=== PATIENT | female | born 1970 | race African-American/Black ===

== ENCOUNTER 2019-02-03 09:46 | Emergency (ER) | payer SELFPAY ==
[2019-02-03] MEDS ORDERED: FAMOTIDINE 20 MG TABLET PO ONE (10:05)
[2019-02-03] MEDS ORDERED: PREDNISONE 20 MG TABLET PO ONE (10:05)
[2019-02-03] MEDS ORDERED: DIPHENHYDRAMINE HCL 50 MG CAPSULE PO ONE (10:05)
--- NOTE | 2019-02-03 10:06 | ER Document Report ---
ED Medical Screen (RME) - General Chief Complaint: Allergic Reaction Stated Complaint: POSSIBLE ALLERGIC REACTION Time Seen by Provider: 02/03/19 10:01 Mode of Arrival: Ambulatory Information source: Patient Notes: Patient presents to the ER today for facial swelling, bilateral eyelid swelling and drainage x4 days after taking an [id number] women's generic vitamin that she thinks she is having an allergic reaction to. She states her eyelids are the worst and that she has had drainage that she has had to wipe from her eyelids. She has been taking Benadryl without relief. She denies any difficulty breathing or feeling of swelling to her lips or airway. TRAVEL OUTSIDE OF THE [place] IN LAST 30 DAYS: No - Related Data Allergies/Adverse Reactions: No Known Allergies Allergy (Verified 02/03/19 09:48) Past Medical History - General Information source: Patient Review of Systems - Review of Systems EENT: See HPI Physical Exam - Vital signs Vitals: Temp Pulse Resp BP Pulse Ox 98.7 F 87 19 148/74 H 96 02/03/19 09:53 02/03/19 09:53 02/03/19 09:53 02/03/19 09:53 02/03/19 09:53 - Notes Notes: PHYSICAL EXAMINATION: GENERAL: Well-appearing and in no acute distress. HEAD: Atraumatic, normocephalic. EYES: Bilateral upper eyelids edematous with drainage bilaterally, pupils equal round and reactive to light, extraocular movements intact, sclera anicteric ENT: nares patent, oropharynx clear without exudates. airway patent Course - Vital Signs Vital signs: Temp Pulse Resp BP Pulse Ox 98.7 F 87 19 148/74 H 96 02/03/19 09:53 02/03/19 09:53 02/03/19 09:53 02/03/19 09:53 02/03/19 09:53
--- NOTE | 2019-02-03 10:26 | ER Document Report ---
ED General - General Chief Complaint: Allergic Reaction Stated Complaint: POSSIBLE ALLERGIC REACTION Time Seen by Provider: 02/03/19 10:01 Primary Care Provider: AMANDO GUIDRY MD [COMMUNITY BASED STAFF] - Follow up as needed RUPESH HODGE MD [ACTIVE STAFF] - Follow up tomorrow Mode of Arrival: Ambulatory TRAVEL OUTSIDE OF THE [place] IN LAST 30 DAYS: No - HPI Notes: 48-year-old female presents the ED for bilateral eye swelling that occurred approximately 7 days ago, patient states she was taking a [id number] vitamin from the [employer] store, states she noticed itching around her eyes, states she did take 25 mg of Benadryl which did help with the itching. Denies any trauma to the eye. Denies fevers, chills, chest pain,palpitations, shor tness of breath, dyspnea, nausea, vomiting, diarrhea, abdominal pain, hematuria,blurred vision, double vision, loss of vision, speech changes, LH, dizziness, syncope, headaches, wheezing, ST, URI, neck pain, weakness, bowel or bladder dysfunction, saddle anesthesia, numbness or tingling in bilateral upper or lower extremities equally, muscle paralysis, weakness in bilateral upper or lower extremities equally or rash. - Related Data Allergies/Adverse Reactions: No Known Allergies Allergy (Verified 02/03/19 09:48) Past Medical History - General Information source: Patient - Social History Smoking Status: Current Every Day Smoker Chew tobacco use (# tins/day): No Frequency of alcohol use: Occasional Drug Abuse: None Family History: Reviewed & Not Pertinent Patient has suicidal ideation: No Patient has homicidal ideation: No Renal/ Medical History: Denies: Hx Peritoneal Dialysis Past Surgical History: Reports: Hx Section - X2 Review of Systems - Review of Systems Constitutional: No symptoms reported EENT: See HPI Cardiovascular: No symptoms reported Respiratory: No symptoms reported Gastrointestinal: No symptoms reported Genitourinary: No symptoms reported Female Genitourinary: No symptoms reported Musculoskeletal: No symptoms reported Skin: No symptoms reported Hematologic/Lymphatic: No symptoms reported Neurological/Psychological: No symptoms reported Physical Exam - Vital signs Vitals: Temp Pulse Resp BP Pulse Ox 98.7 F 87 19 148/74 H 96 02/03/19 09:53 02/03/19 09:53 02/03/19 09:53 02/03/19 09:53 02/03/19 09:53 - Notes Notes: PHYSICAL EXAMINATION: GENERAL: Well-appearing, well-nourished and in no acute distress. HEAD: Atraumatic, normocephalic. Bilateral Periorbital swelling with noted papular rash non-erythematous, no erythema induration or warmth to touch. EYES: Pupils equal round and reactive to light, extraocular movements intact, conjunctiva with erythema. ENT: Nares patent, oropharynx clear without exudates. Moist mucous membranes. NECK: Normal range of motion, supple without lymphadenopathy LUNGS: Breath sounds clear to auscultation bilaterally and equal. No wheezes rales or rhonchi. HEART: Regular rate and rhythm without murmurs ABDOMEN: Soft, nontender, nondistended abdomen. No guarding, no rebound. No masses appreciated. Female : deferred Musculoskeletal: Normal range of motion, no pitting or edema. No cyanosis. NEUROLOGICAL: Cranial nerves grossly intact. Normal speech, normal gait. Normal sensory, motor exams PSYCH: Normal mood, normal affect. SKIN: Warm, Dry, normal turgor, no rashes or lesions noted. Course - Re-evaluation Re-evalutation: 02/03/19 12:14 Afebrile vitals stable no distress. Nursing notes reviewed. CBC and CMP unrem arkable, CRP slightly elevated. Throughout the duration of her stay, patient states she is feeling better after receiving 60 mg of prednisone, 20 mg of famotidine and 50 mg of benadryl on re evaluation. Only decreased on periorbital area bilaterally.Patient presents with symptoms consistent with an allergic reaction without anaphylaxis. Only cutaneous involvement with eve orbital area with dermatitis Vitals otherwise within normal limits at time of arrival. No respiratory, GI, cardiovascular, or oral pharyngeal symptoms. Will recommend ongoing antihistamine therapy as an outpatient. At this time will discharge with return precautions and follow-up recommendations. Verbal discharge instructions given a the bedside and opportunity for questions given. Medication warnings reviewed. Patient is in agreement with this plan and has verbalized understanding of return precautions and the need for primary care follow-up in the next 24-72 hours. - Vital Signs Vital signs: Temp Pulse Resp BP Pulse Ox 98.3 F 73 18 136/83 H 95 02/03/19 13:29 02/03/19 13:29 02/03/19 13:29 02/03/19 13:29 02/03/19 13:29 - Laboratory Result Diagrams: 02/03/19 10:55 02/03/19 10:55 Laboratory results interpreted by me: 02/03/19 02/03/19 10:55 10:55 Hgb 11.5 L Hct 35.6 L RDW 16.3 H Glucose 121 H C-Reactive Protein 15.5 H Discharge - Discharge Clinical Impression: Allergic reaction, Bilateral conjunctivitis, Periorbital cellulitis Condition: Stable Disposition: HOME, SELF-CARE Instructions: Acute Allergic Reaction to Drugs ([facility]), Cellulitis ([facility]), Eyedrop Use ([facility]) Additional Instructions: Your CBC and CMP were essentially normal. You were given prednisone, Benadryl and famotidine while in the ED. Your symptoms have become better. We will be sending home on oral antibiotics, antibiotic drops and steroids. Please follow-up with an deer farm worker or wire temperer in the next several days if you have any additional concerns or symptoms. Return for any additional concerns you may have including increasing pain, drainage from the eye, swelling around the eye, changes in vision to the eye, or any other symptoms that are worrisome to you. follow-up with deer farm worker within the next 24 hours as well as primary care provider. Return immediately for any new or worsening symptoms. Follow up with primary care provider, call tomorrow to make followup appointment. Prescriptions: Cephalexin Monohydrate [Keflex 500 mg Capsule] 500 mg PO BID #20 capsule Polymyxin B Sulfate/Tmp [Polytrim Oph Soln 10 ml] 1 drop OP ASDIR PRN #1 bottle PRN Reason: Prednisone [Deltasone 20 mg Tablet] 3 tab PO DAILY 5 Days #15 tablet Referrals: RUPESH HODGE MD [ACTIVE STAFF] - Follow up tomorrow AMANDO GUIDRY MD [COMMUNITY BASED STAFF] - Follow up as needed
[2019-02-03 11:16] LABS: ABSOLUTE EOSINOPHILS # (AUTO) 0.3 10^3/uL (0.0-0.6); ABSOLUTE LYMPHOCYTES (AUTO) 1.2 10^3/uL (0.5-4.7); ABSOLUTE MONOCYTES (AUTO) 0.4 10^3/uL (0.1-1.4); ABSOLUTE NEUT (AUTO) 4.2 10^3/uL (1.7-8.2); BASOPHILS % (AUTO) 0.5 % (0-2); HEMATOCRIT 35.6 % (36.0-47.0); HEMOGLOBIN 11.5 g/dL (12.0-15.5); LYMPHOCYTES % (AUTO) 19.4 % (13-45); MEAN CORPUSCULAR HEMOGLOBIN 27.6 pg (27.0-33.4); MEAN CORPUSCULAR HGB CONC 32.2 g/dL (32.0-36.0); MEAN CORPUSCULAR VOLUME 86 fl (80-97); MONOCYTES % (AUTO) 7.1 % (3-13); PLATELET COUNT 263 10^3/uL (150-450); RED BLOOD COUNT 4.15 10^6/uL (3.72-5.28); RED CELL DISTRIBUTION WIDTH 16.3 % (11.5-14.0); TOTAL CELLS COUNTED % (AUTO) 100 %; WHITE BLOOD COUNT 6.2 10^3/uL (4.0-10.5)
[2019-02-03 11:43] LABS: ALANINE AMINOTRANSFERASE 26 U/L (9-52); ALBUMIN 3.9 g/dL (3.5-5.0); ALKALINE PHOSPHATASE 57 U/L (38-126); ANION GAP 7 (5-19); ASPARTATE AMINO TRANSFERASE 21 U/L (14-36); BILIRUBIN,DIRECT 0.2 mg/dL (0.0-0.4); BILIRUBIN,TOTAL 0.5 mg/dL (0.2-1.3); BLOOD UREA NITROGEN 9 mg/dL (7-20); C-REACTIVE PROTEIN 15.5 mg/L (<10.0); CALCIUM 8.6 mg/dL (8.4-10.2); CARBON DIOXIDE 30 mmol/L (22-30); CHLORIDE 102 mmol/L (98-107); GLUCOSE 121 mg/dL (75-110); POTASSIUM 4.1 mmol/L (3.6-5.0); TOTAL PROTEIN 7.2 g/dL (6.3-8.2)
[2019-02-03] MEDS ORDERED: LIDOCAINE 1% INJ-PF (10 MG/ML) 30 ML SDV INJ ONE (12:10)
[2019-02-03] MEDS ORDERED: CEFTRIAXONE INJ 1000 MG VIAL IM ONE (12:10)
[2019-02-03 13:32] VITALS: BP 136/83
== END 2019-02-03 13:32 | disposition home or self-care (01) ==
LOC: ER 09:46
DX: H10.9 Unspecified conjunctivitis (principal); L03.213 Periorbital cellulitis; T78.40XA Allergy, unspecified, initial encounter; X58.XXXA Exposure to other specified factors, initial encounter; F17.200 Nicotine dependence, unspecified, uncomplicated
CPT/HCPCS: 99283; 96374; 96375; 36415; 85025; 86140; 80053; J3490; J7512; J0696